=== PATIENT | male | born 1960 | race Caucasian/White ===

== ENCOUNTER → 2020-06-01 | Outpatient (CLI) | payer OTHER ==
[~2020-06-01] MED LIST: ABILIFY2 MG PO; ALLEGRA ALLERG180 MG PO; ASPIRIN EC81 MG PO; ATORVASTATIN CA20 MG PO; BACTRIM DS TAB1 EACH PO; CEFUROXIME500 MG PO; CHANTIX1 MG PO; DIAMOX 250 MG250 MG PO; ECOTRIN81 MG PO; FUROSEMIDE40 MG PO; GLUCOPHAGE XR500 M1 PO; GLUCOPHAGE XR500 MG PO; IPRAT-ALBUT 0.5-3 ML INH; K-DUR TAB 10 M10 MEQ PO; LASIX40 MG PO; LEVAQUIN750 MG PO; LIPITOR TAB 2020 MG PO; NORCO 7.5-3251 EACH PO; NORVASC 5 MG TAB5 MG PO; PLAVIX 75 MG TA75 MG PO; PRINIVIL20 MG PO; STIOLTO RESPIMAT INH; VENTOLIN HFA 66.7 GM INH; VITAMIN D250000 UNIT PO; VITAMIN D350000 UNIT PO; XARELTO2.5 MG PO; ZOLOFT100 MG PO
== END ==
LOC: RAD 09:42
DX: I10 Essential (primary) hypertension (principal); E83.51 Hypocalcemia; R06.02 Shortness of breath; J43.9 Emphysema, unspecified
CPT/HCPCS: 36415; 71046; 80061